=== PATIENT | female | born 1995 | race Caucasian/White ===

== ENCOUNTER 2019-05-15 21:03 | Outpatient (CLI) | payer OTHER ==
[2019-05-15 21:47] LABS: APPEARANCE,URINE CLEAR; BILIRUBIN,URINE NEGATIVE (NEGATIVE); COLOR,URINE STRAW; GLUCOSE, URINE NEGATIVE (NEGATIVE); KETONES,URINE NEGATIVE (NEGATIVE); LEUKOCYTE ESTERASE,URINE NEGATIVE (NEGATIVE); NITRITE,URINE NEGATIVE (NEGATIVE); PROTEIN,URINE NEGATIVE (NEGATIVE); URINE SPECIFIC GRAVITY 1.008; UROBILINOGEN,URINE NEGATIVE mg/dL (<2.0)
[2019-05-15 22:02] LABS: URINE AMPHETAMINES SCREEN NEGATIVE; URINE BARBITURATES SCREEN NEGATIVE; URINE BENZODIAZEPINES SCREEN NEGATIVE; URINE COCAINE SCREEN NEGATIVE; URINE MARIJUANA (THC) SCREEN NEGATIVE; URINE METHADONE SCREEN NEGATIVE; URINE PHENCYCLIDINE SCREEN NEGATIVE
--- NOTE | 2019-05-15 23:49 | RADIOLOGY REPORT (SQ) ---
CLINICAL HISTORY: vaginal bleeding w/previa COMPARISON: None. TECHNIQUE: US LIMITED 05/15/2019 12:00 AM [employer] FINDINGS: Cervix is closed measuring 3.1 cm. Single live intrauterine gestation is in a vertex presentation with a heart rate of 150 bpm. CHRISTOPHER is normal at 15.5 cm. Placenta is posterior and is unremarkable. IMPRESSION: No evidence of placenta previa or hemorrhage.
== END 2019-05-16 01:46 | disposition home or self-care (01) ==
LOC: LC 21:03
PROVIDERS: ATTEND Obstetrics & Gynecology
PROC: 4A1HXCZ Monitoring of Products of Conception, Cardiac Rate, External Approach (ICD-10-PCS; principal; 2019-05-15)
DX: O46.92 Antepartum hemorrhage, unspecified, second trimester (principal); Z3A.26 26 weeks gestation of pregnancy
CPT/HCPCS: 76815; 80307; 81001